=== PATIENT | male | born 1985 | race Two or more races ===

== ENCOUNTER → 2021-02-02 | Emergency (ER) | payer OTHER ==
[~2021-02-02] VITALS: Ht 152.4 cm; Wt 90.7 kg
[~2021-02-02] MED LIST: AMOX-CLAV 875-1 EACH PO; KETO10TA2 PO; MUPIROCIN1 G1 TOP; NASAL MIST126 ML
== END | disposition home or self-care (01) ==
LOC: ER 13:20
DX: L03.011 Cellulitis of right finger (principal); S61.214S Laceration without foreign body of right ring finger without damage to nail, sequela; V00-Y99 External causes of morbidity